=== PATIENT | female | born 1980 | race African-American/Black ===

== ENCOUNTER 2017-02-14 20:16 | Inpatient (IN) | payer OTHER ==
[~2017-02-14] VITALS: Ht 177.8 cm; Wt 108.9 kg
--- NOTE | 2017-02-14 21:26 | ED EYE COMPLAINT ---
History of Present Illness General Chief Complaint: Eye Problems Stated Complaint: PT RGT EYE HAS DISCHARGE RUNNING OUT Source: patient Exam Limitations: no limitations Vital Signs & Intake/Output Vital Signs & Intake/Output Vital Signs Date Time Temp Pulse Resp B/P Pulse O2 O2 Flow FiO2 Ox Delivery Rate 02/14 2250 96.5 70 20 111/54 97 Room Air 02/14 2051 97.7 69 18 130/81 98 Room Air ED Intake and Output 02/15 0000 02/14 1200 Intake Total Output Total Balance Patient 245 lb Weight Allergies Coded Allergies: No Known Drug Allergies (NKDA 02/14/17) Reconcile Medications Amoxicillin/Potassium Clav (Augmentin 875-125 Tablet) 875 MG-125 MG TABLET 1 TAB PO BID CELLULITIS Triage Note: PT TO ED C/O RT EYE SWELLING AND DISCHARGE, STARTED TODAY. WENT TO WALK IN WAS TOLD TO COME TO ED. PT IS UNAWARE OF ANY FOREIGN BODY. RETURNED FROM [place] ON SATURDAY Triage Nurses Notes Reviewed? yes Onset: Gradual Duration: hour(s): (6) Timing: no prior history Injury Environment: home Severity: moderate Severity Numbers: 7 Modifying Factors: Worsens With: other (palpation). Right Eye Associated Symptoms: burning, pain, orbital redness, eyelid redness, eyelid swelling : No Patient currently breastfeeds: No HPI: Patient is a 36-year-old female presenting to the emergency department with chief complaint of right eye discharge, swelling this been progressive over the past 6 hours. Patient reports that she was at work when she noticed a small my discharge coming from the eye but didn't think anything of it. When she was driving home her daughter mentioned something to her about her right eye and she took a look at him. It was way worse. Pain is burning in nature. She reports that the purulent discharge.. Denies any foreign body sensation. Denies any,. No history of similar symptoms in the past. She does not wear contacts. She has not taken anything to help with the symptoms. No recent upper respiratory congestion or viral syndrome. She did recently get back from [place] 4 days ago. No one else with similar symptoms. ([address],BETO) Past History Travel History Traveled to [place] past 21 day No Medical History Any Pertinent Medical History? see below for history Cancer(s): NONE Surgical History Surgical History: non-contributory Psychosocial History What is your primary language Romanian Tobacco Use: Never used Family History Hx Contributory? No (BETO SINGH) Review of Systems Review of Systems Constitutional: Reports: no symptoms. Comments Review of systems: See HPI, All other systems negative. Constitutional, no chills fever or weight loss HEENT: No visual changes no sore throat no congestion Cardiovascular: No chest pain ,palpitation , orthopnea or ankle swelling Skin, no jaundice no rashes Respiratory: No dyspnea cough sputum or hemoptysis GI: No nausea no vomiting Muscle skeletal: no back pain, no neck pain, Neurologic: No numbness no confusion Psych: No stress anxiety Immunology: No splenectomy or history of AIDS (BETO SINGH) Physical Exam General Appearance: well developed/nourished, no apparent distress, alert, awake , comfortable General Inspection: normal inspection Eyelid: normal inspection Conjunctiva/Sclera: normal inspection Cornea: normal inspection EOM: intact Pupil: normal accommodation, normal pupil, PERRL General Inspection: erythema and edema noted over the right upper and lower eyelid. Eyelid: edema, erythema Conjunctiva/Sclera: injected Cornea: normal inspection, examined w/fluorescein EOM: intact Pupil: normal accommodation, normal pupil, PERRL Anterior Chamber: normal inspection Physical Exam Head: atraumatic Comments: Well-developed well-nourished person in no acute distress HEENT: Pain with extraocular eye movements on the right, no entrapment visualized, Pupils equally round and reactive to light and accommodation. Moderate amount of purulent drainage coming from the medial and lateral canthi of the right eye. Tender to palpation over the upper and lower eyelid of the right eye with moderate edema. Nose is atraumatic. External auditory canal and Tympanic membranes clear. Pharynx normal. Neck: Supple, no lymphadenopathy, normal range of motion without pain or tenderness Back: Nontender Cardiovascular: normal JVP Respiratory: No respiratory distress Extremity: No edema Neuro: Alert oriented x3 Skin: No appreciable rash on exposed skin, skin is warm and dry. Psych: Mood and affect is normal, memory and judgment is normal. (BETO SINGH) Progress Differential Diagnosis: corneal abrasion, corneal foreign body, conjunctivitis, periorbital cellulitis, orbital cellulitis Plan of Care: Orders Procedure Date/time Status Regular Diet 02/15 B Active Patient Data 02/144 Active OXYGEN SETUP (GEN) 02/14 2327 Active Saline Lock 02/14 2327 Active Admit to inpatient 02/14 2327 Active Vital Signs 02/14 2327 Active Activity/Ambulation 02/14 2327 Active Code Status 02/14 2327 Active Intake & Output 02/14 2137 Active HUMAN BETA HCG SCREEN 02/14 2125 Complete COMPREHENSIVE METABOLIC PANEL 02/14 2125 Complete CBC WITHOUT DIFFERENTIAL 02/14 2125 Complete Laboratory Tests 02/14/172131: Anion Gap 8, Estimated GFR > 60, BUN/Creatinine Ratio 17.1, Glucose 95, Calcium 9.3, Total Bilirubin 0.5, AST 30, ALT 44, Alkaline Phosphatase 56, Total Protein 7.0, Albumin 3.9, Globulin 3.1, Albumin/Globulin Ratio 1.3, Total Beta HCG NEGATIVE, CBC w Diff NO MAN DIFF REQ, RBC 4.39, MCV 76.3 L, MCH 24.9 L, RDW 16.1 H, MPV 8.6, Gran % 61.1, Lymphocytes % 27.6, Monocytes % 8.3, Eosinophils % 2.5, Basophils % 0.5, Absolute Granulocytes 4.4, Absolute Lymphocytes 2.0, Absolute Monocytes 0.6, Absolute Eosinophils 0.2, Absolute Basophils 0, PUBS MCHC 32.7 L Diagnostic Imaging: Viewed by Me: CT Scan. Discussed w/RAD: CT Scan. Radiology Impression: There is no abnormal stranding behind the orbital septum. There is no abscess. Thickening consistent with orbital cellulitis. Hand-Off Endorsed To: RACHID PRADO MD Endorsed Time: 2299 Pending: CT Comments: 02/14/2017 10:35:33 PM patient informed of all lab work results. Pending CT at this time. Patient medicated with IV clindamycin assistance first-line treatment for preseptal cellulitis. I suspect the patient has periorbital cellulitis. Pending CT results patient will be treated with oral antibiotics and antibiotic eyedrops. Patient be signed out to Dr. Prado. (BETO SINGH) Radiology Impression: There is no abnormal stranding behind the orbital septum. There is no abscess. Thickening consistent with orbital cellulitis. (RACHID PRADO MD) Departure Departure Condition: Stable Referrals: DIANA SIMPSON,DELORIS MENA (PCP/Family) SRINIVAS SIMPSON,GINGER Watson Additional Instructions: Follow-up with ophthalmology call to make an appointment. Take oral antibiotics and eyedrops as prescribed. Take [id number] Motrin and Tylenol as directed for pain. Apply warm compresses. Avoid rubbing. Return for worsening symptoms or concerns. Departure Forms: Customer Survey General Discharge Information Prescriptions: Current Visit Scripts Amoxicillin/Potassium Clav (Augmentin 875-125 Tablet) 1 TAB PO BID #8 TAB (BETO SINGH) Departure Time of Disposition: 2329 Disposition: STILL A PATIENT Clinical Impression Primary Impression: Orbital cellulitis on right Admission Note Spoke With: JENIFER MILLER MD Documentation of Exam: Documentation of any treatments & extenuating circumstances including Concerns Regarding Discharge (functional status, medication knowledge or non-compliance, living conditions, etc.) that warrant an admission rather than observation: IV antibiotics serial exam ensure extraocular muscles remain intact ophthalmology evaluation continuing care discharge planning PA/DETECTIVE Co-Sign Statement Statement: ED Attending supervision documentation- x I saw and evaluated the patient. I have also reviewed all the pertinent lab results and diagnostic results. I agree with the findings and the plan of care as documented in the PA's/DETECTIVE's documentation. [] I have reviewed the ED Record and agree with the PA's/DETECTIVE's documentation. [] Additions or exceptions (if any) to the PAs/DETECTIVE's note and plan are summarized below: [] (EVE SIMPSON,RACHID)
[2017-02-14 21:46] LABS: ABSOLUTE BASOPHIL COUNT 0 /CUMM (0.0-0.2); ABSOLUTE EOSINOPHIL COUNT 0.2 /CUMM (0.0-0.7); ABSOLUTE GRANULOCYTE CT 4.4 /CUMM (1.4-6.5); ABSOLUTE MONOCYTE COUNT 0.6 /CUMM (0.10-0.60); BASOPHIL % 0.5 % (0.0-2.0); EOSINOPHIL % 2.5 % (0-5); GRANULOCYTE % 61.1 % (42.2-75.2); HEMATOCRIT 33.5 % (37-47); MEAN CORPUSCULAR HGB 24.9 PG (27.0-31.0); MEAN CORPUSCULAR HGB CONC 32.7 G/DL (33.0-37.0); MEAN CORPUSCULAR VOLUME 76.3 FL (81.0-99.0); MEAN PLATELET VOLUME 8.6 FL (7.4-10.4); PLATELET COUNT 314 /CUMM (130-400); RBC DISTRIBUTION WIDTH 16.1 % (11.5-14.5); RED BLOOD CELL CT 4.39 /CUMM (4.20-5.40); WHITE BLOOD CELL COUNT 7.1 /CUMM (4.8-10.8)
[2017-02-14] MEDS ORDERED: CLEOCIN HCL300 M1 PO (22:37)
[2017-02-14] MEDS ORDERED: POLYTRIM EYE DR10 ML OPH (22:37)
--- NOTE | 2017-02-14 23:04 | CT SCAN REPORT ---
EXAMINATION: CT ORBIT WITH CONTRAST CLINICAL INFORMATION: Orbital cellulitis. Discharge, pain. Right-sided symptoms COMPARISON: None TECHNIQUE: CT of the orbits. The patient received 95 mL of Optiray 320. Reformatting in the coronal and parasagittal planes DLP: 216 mGy-cm FINDINGS: The globes appear intact. The lenses are not displaced. There is no asymmetry or abnormal density in the optic nerve on either side. The superior ophthalmic veins appear to enhance normally. There is no mass or collection in the orbital apex on either side. The lacrimal apparatus appears within normal limits and is symmetric. There is no stranding in the retroseptal orbital fat. No mass or collection related to the extraocular muscles. No significant proptosis. There is some thickening and stranding in the superficial tissues in the region of the right eyelid. There is no opaque foreign body. No abnormality within the visualized cranial contents. No abnormality of the nasal cavity, maxillary sinuses or ethmoid air cells. The frontal sinuses appear symmetrically pneumatized and aerated. There is no disruption of the tissue planes in the infratemporal fossa. The parapharyngeal tissue planes are maintained. There is enhancement in the visualized portions of the right internal jugular vein. IMPRESSION: There is no abnormal stranding behind the orbital septum. There is no abscess. Thickening consistent with orbital cellulitis.
--- NOTE | 2017-02-15 01:15 | History & Physical ---
[facility] 02/[facility] 0046: General Information and HPI MD Statement: I have seen and personally examined XIOMARA SENIOR and documented this H&P. The patient is a 36 year old F who presented with a patient stated chief complaint of [swelling of eye]. Source of Information: patient, family Exam Limitations: no limitations History of Present Illness: This is a 36 yo female with PMH of non-malignant thyroid nodule s/p resection in Oct 2016-not on replacement therapy, who comes in with CC of r. eye swelling. Pt stated that at 2 pm today co-worker noted some exudate in eye, by 5 PM it was noticeably swollen, her visual field decreased 2/2 swelling, eye was notably erytematous, and extra-ocular movements were painful. Patient states she has baseline 20/20 vision. She denies use of corrective contact lenses, decorative lenses, glasses, or intraocular eyedrops. Denies any recent trauma to eye. Patient stated she had her eyebrows started about 10 days ago and she plucked her eyebrows 2 days ago. Of note, she was in [facility] about a week and a half ago. The trip consisted of wilderness excursions including visit to [place] and swimming [place]. During the trip patient did experience some febrile illness. Denied any other recent illnesses or sick contacts. Denies any recent eye infection, hordeolum, blehparitis, etc. Patient denies smoking, drinks socially, denies any drug use/IVDA. Allergies/Medications Allergies: Coded Allergies: No Known Drug Allergies (NKDA 02/14/17) Home Med list No Known Home Medications Compliance With Home Meds: UNKNOWN Past History Travel History Traveled to [facility] past 21 day No Medical History Endocrine: thyroid nodule s/p resection Cancer(s): NONE Surgical History Surgical History: non-contributory Past Family/Social History Psychosocial History Smoking Status: Never Smoked ETOH Use: occasional use Illicit Drug Use: denies illicit drug use Functional Ability ADLs Independent: dressing, eating, toileting, bathing. Ambulation: independent IADLs Independent: shopping, housework, finances, food prep, telephone, transportation , medication admin. Review of Systems Review of Systems Constitutional: Denies: chills, fever, malaise, weakness. EENTM: Reports: eye pain, eye drainage, eye tearing. Denies: blurred vision, double vision, visual changes, ear discharge, ear pain, ear redness, hearing changes, epistaxis, nasal pain, throat pain. Cardiovascular: Denies: chest pain, palpitations, syncope. Respiratory: Denies: cough, short of breath. GI: Reports: no symptoms. Genitourinary: Reports: no symptoms. Musculoskeletal: Reports: no symptoms. Skin: Reports: no symptoms. Exam & Diagnostic Data Last 24 Hrs of Vital Signs/I&O Vital Signs Date Time Temp Pulse Resp B/P Pulse O2 O2 Flow FiO2 Ox Delivery Rate 02/15 0057 97.2 73 18 120/88 98 02/14 2250 96.5 70 20 111/54 97 Room Air 02/14 2051 97.7 69 18 130/81 98 Room Air Intake & Output 02/15 0800 02/15 0000 02/14 1600 Intake Total Output Total Balance Patient 111.13 kg Weight Physical Exam General Appearance Alert, Oriented X3, Cooperative, Mild Distress Skin SEE BELOW HEENT Atraumatic, PERRLA, EOMI, Eyelid swollen and erythematous. Slight hypopyon appreciated . Sclera injected. EOM intact WITHOUT pain. , no discharge expressed from lacrimal duct Neck Supple Cardiovascular Regular Rate, Normal S1, Normal S2, No Murmurs Lungs Normal Air Movement Abdomen Normal Bowel Sounds, Soft, No Tenderness Neurological Normal Speech, Strength at 5/5 X4 Ext, Normal Tone, Sensation Intact, Cranial Nerves 3-12 NL Last 24 Hrs of Labs/Mauro: Laboratory Tests 02/14/172131: Anion Gap 8, Estimated GFR > 60, BUN/Creatinine Ratio 17.1, Glucose 95, Calcium 9.3, Total Bilirubin 0.5, AST 30, ALT 44, Alkaline Phosphatase 56, Total Protein 7.0, Albumin 3.9, Globulin 3.1, Albumin/Globulin Ratio 1.3, Total Beta HCG NEGATIVE, CBC w Diff NO MAN DIFF REQ, RBC 4.39, MCV 76.3 L, MCH 24.9 L, RDW 16.1 H, MPV 8.6, Gran % 61.1, Lymphocytes % 27.6, Monocytes % 8.3, Eosinophils % 2.5, Basophils % 0.5, Absolute Granulocytes 4.4, Absolute Lymphocytes 2.0, Absolute Monocytes 0.6, Absolute Eosinophils 0.2, Absolute Basophils 0, PUBS MCHC 32.7 L Assessment/Plan Assessment: This is a 36-year-old female past medical history significant for resection of non-malignant thyroid nodule, comes in for acutely swollen erythematous right eye. Plan: 1. Pre-septal cellulitis: Patient comes that acutely swollen erythematous eye. She has history significant for recent travel and swimming in [place]. However, this was over 10 days ago. More recently she has had her eyebrows threaded and plucked which could represent source of trauma. She does not have any hx of contact lens wear, trauma or eye drops. Given that patient denies ophthalmoplegia, there is no evidence of decrease in visual acuity, and no signs of proptosis this is likely pre-septal cellulitis rather than orbital cellulitis. Note that CT states "there is no abnormal stranding behind the orbital septum. There is no abscess. Thickening consistent with orbital cellulitis." The resident spoke directly with the radiologist and confirmed that there is NO orbital cellulitis and that the impression contained a typo. Note that patient is afebrile with no white count. She got 1 dose of clindamycin in the ED. * Start vancomycin and ceftaz for coverage of MRSA and Pseudomonas. If clinical suspicion is low for waterborne pathogen then consider switching to vancomycin and ceftriaxone until cultures are obtained and antibiotics can be further narrowed. * Continue to monitor clinically; if condition worsens consider ophthalmology/ID consult Full code Regular diet Chemical DVT prophylaxis As Ranked By This Provider Problem List: 1. Preseptal cellulitis of right eye Core Measures/Miscellaneous Acute Coronary Syndrome ACS Diagnosis: No Cerebrovascular Accident CVA/TIA Diagnosis: No Congestive Heart Failure CHF Diagnosis: No Venous Thromboembolism VTE Risk Factors: Acute medical illness No Mech VTE prophylaxis d/t: VTE low risk, No contraindications No VTE Pharm Prophylaxis d/t: No contraindications VTE Diagnosis: No VTE Type: NONE VTE Confirmed by (Test): NONE Severe Sepsis Severe Sepsis Present: No Septic Shock Septic Shock Present: No Miscellaneous Documentation Attending Case Discussed With: KELL [facility]ER [facility] Primary Care Physician: DIANA SIMPSON,DELORIS MENA Patient sees these Specialists unknown Level of Patient Care: General Medicine SUNDAY SIMPSON,[facility] 02/15/17 0114: Resident Review Statement Resident Statement: examined this patient, discussed with partner marketing intern, agreed with partner marketing intern, discussed with family, reviewed EMR data (avail), discussed with nursing , discussed with case mgmt, reviewed images, amended to note Other Findings: Xiomara is a 36 year old woman with no past medical hx other than a large thyroid nodule that was partially resected (negative for malignancy) - not on thyroid hormone replacement who presents with acute (several hours) onset inflammation of right eye, with purulent drainage. She has had her eye brows waxed and hx of recent (2 days ago) instrumentation with pluckers for cosmetic hair removal. Recent travel to [facility] 10 days ago wherein she was swimming in caves. No systemic symptoms or signs of infection. Clinically EOM function and vision is grossly intact, minimal local tenderness. Orbital CT notes 'Thickening consistent with orbital cellulitis.' however this is a mistake that I have clarified with a second reading by Raheem Douglas MD that this is indeed pre-orbital cellulitis. Most likely culprit is S.aureus from recent manipulation of skin/hair follicles but because of recent travel hx and contact with cave water we are concerned about unsual pathogens such as pseudomonas. Adeline Limon MD has also obtained telephonic consultation with [facility] - who agrees this is all pre-orbital. - Problems - Pre-orbital cellulitis of the R. Eye - Plan - Vancomycin and Ceftaz - given unusual exposure history if a febrile, narrow abx accordingly Consider plastic sx consult If she becomes pyrexic obtain blood cultures DVT ppx lovenox Full code ANGELA SIMPSON, [facility] 02/15/17 0300: Attending MD Review Statement Attending Statement Attending MD Statement: examined this patient, discuss w/resident/PA/SALES AND SERVICE TECHNICIAN, agreed w/resident/PA/SALES AND SERVICE TECHNICIAN, discussed with family Attending Assessment/Plan: 36 yo obese F with h/o thyroid nodule s/p resection, is here with right eye preseptal cellulitis with purulent discharge that developed over past 24 hours. Initially she felt eye movement was slightly restricted but now her EOM are intact bilaterally. She denies blurring of vision, the swelling hampers her visual field though. Patient recollects her recent visit to [facility] with water and dust exposure to eyes. She recently waxed her eyebrows and also plucked her eyebrows which could have been the inciting event. VSS. Labs: no leukocytosis, microcytic anemia. CT shows thickening and stranding in superficial tissues in region of right eyelid preseptal cellulitis, no opaque foreign body. No stranding behind orbital septum, no abscess. CT impression reads Orbital cellulitis which is a mistake. Blood cultures, patient received IV Clindamycin in ER, will cover with Ceftaz and Vanco for now. Narrow antibiotics based on response and if patient remains afebrile. Ophthal was consulted by ER, no intervention needed if patient has intact eye movements. Patient can follow up Ophthal as outpatient. Work up microcytic anemia check iron studies. DVT ppx Alps (low risk, can ambulate). Full code.
--- NOTE | 2017-02-15 02:15 | Admission Certification ---
Admission Certification Certification Statement - As attending physician, I certify that at the time of - admission, based on clinical presentation, severity of - symptoms, need for further diagnostic testing and - therapeutic interventions, and risk of adverse outcomes - without in-hospital treatment, in my clinical assessment, - this patient requires an acute hospital stay for a minimum - of two nights or longer. I have also considered psychsocial - factors such as support system, advanced age, financial - issues, cognitive issues, and failed out-patient treatments, - past re-admission history, safety of patient, and lack of - compliance as applicable. Specific rationale supporting this admission is: Preseptal cellulitis.
[2017-02-15 02:30] VITALS: BP 102/70
[2017-02-15 07:07] VITALS: BP 110/70
[2017-02-15 07:55] LABS: ABSOLUTE BASOPHIL COUNT 0 /CUMM (0.0-0.2); ABSOLUTE EOSINOPHIL COUNT 0.2 /CUMM (0.0-0.7); ABSOLUTE GRANULOCYTE CT 2.9 /CUMM (1.4-6.5); ABSOLUTE LYMPH COUNT 1.6 /CUMM (1.2-3.4); ABSOLUTE MONOCYTE COUNT 0.4 /CUMM (0.10-0.60); BASOPHIL % 0.6 % (0.0-2.0); EOSINOPHIL % 3.1 % (0-5); GRANULOCYTE % 56.2 % (42.2-75.2); HEMATOCRIT 34.2 % (37-47); MEAN CORPUSCULAR HGB 24.8 PG (27.0-31.0); MEAN CORPUSCULAR HGB CONC 32.1 G/DL (33.0-37.0); MEAN CORPUSCULAR VOLUME 77.3 FL (81.0-99.0); MEAN PLATELET VOLUME 8.8 FL (7.4-10.4); PLATELET COUNT 308 /CUMM (130-400); RBC DISTRIBUTION WIDTH 15.9 % (11.5-14.5); RED BLOOD CELL CT 4.43 /CUMM (4.20-5.40); WHITE BLOOD CELL COUNT 5.2 /CUMM (4.8-10.8)
[2017-02-15 08:39] LABS: PT 10.8 SEC (9.4-12.5)
--- NOTE | 2017-02-15 11:21 | PN- Att Addend ---
Attending Addendum Attending Brief Note Patient seen and examined. Discussed with team and infectious diseases. She is a 36-year-old female with a history of a thyroid nodule recent travel to [place] returned on Saturday the and between Saturday and had eyebrow waxed. She is here with a very clear-cut, what we believe is a preseptal cellulitis. She has no proptosis, no ophthalmoplegia and no pain with eye movements. The concern obviously is the travel to [place] and possibility of water exposure. At this point she is on Vanco to cover for the possibility of community-acquired MRSA and on ceftaz to cover for the possibility of Aeromonas. Will call in ID to narrow the antibiotics as I don't think she needs this much but obviously she is a 36-year-old with significant preseptal cellulitis. I don't believe she has sinusitis and we will closely follow-up.
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
[2017-02-15 14:28] VITALS: BP 120/62
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
[2017-02-15 22:40] VITALS: BP 120/80
[2017-02-16 06:58] VITALS: BP 102/64
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
--- NOTE | 2017-02-16 12:14 | PN- Infect Dx ---
Subjective Subjective: Afebrile. She feels improved but still notes some discomfort with moving her eye. Objective Last 24 Hrs of Vital Signs/I&O Vital Signs Date Time Temp Pulse Resp B/P Pulse O2 O2 Flow FiO2 Ox Delivery Rate 02/16 0658 97.8 52 16 102/64 97 Room Air 02/15 2240 98.8 75 20 120/80 98 Room Air 02/15 1428 97.8 70 20 120/62 98 Intake & Output 02/16 1600 02/16 0800 02/16 0000 Intake Total 550 650 Output Total Balance 550 650 Intake, IV 300 Intake, Oral 250 650 Physical Exam Other Physical Findings: She appears comfortable in no acute distress HEENT decreased right periorbital swelling; right subconjunctival hemorrhages persist; no significant erythema or tenderness on palpation Results Last 24 Hours of Lab Results: Laboratory Tests 02/16 1010 Urines Urine Color (YEL,AMB,STR) YEL Urine Clarity (CLEAR) CLEAR Urine pH (5.0 - 8.0) 7.0 Ur Specific [place] (1.001 - 1.035) 1.010 Urine Protein (NEG,<30 MG/DL) NEG Urine Ketones (NEG) NEG Urine Nitrite (NEG) NEG Urine Bilirubin (NEG) NEG Urine Urobilinogen (0.1 - 1.0 EU/dl) 0.2 Ur Leukocyte Esterase (NEG) NEG Ur Microscopic SEDIMENT EXAMINED Urine RBC (0 - 5 /HPF) RARE Ur Epithelial Cells (NONE,FEW) FEW Urine Hemoglobin (NEG) TRACE-INTACT Urine Glucose (N MG/DL) NEG Last 24 Hours of Mauro Results: No cultures Assessment/Plan Impression: Improving on Unasyn Day 2 of treatment for right preseptal cellulitis, possibly related to her recent eyebrow plucking or to a sinusitis, with temperatures and white blood cell count remaining normal. Suggestion: 1. Warm compresses to the right periorbital area 2. Continue Unasyn with a change to Augmentin 875 mg po every 12 hours if she continues to improve to complete a 7 to 10 day course of treatment
[2017-02-16 14:50] VITALS: BP 120/80
[2017-02-16 22:00] VITALS: BP 122/80
[2017-02-17 06:35] VITALS: BP 106/76
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
[2017-02-17] MEDS ORDERED: AUGMENTIN 875-1 EACH PO (09:35)
--- NOTE | 2017-02-17 09:37 | Patient Discharge Instructions ---
Discharge Instructions General Discharge Information Special Instructions: Follow up up with your primary care provider within one week for further evaluation of your preseptal-periorbital cellulitis. Take Augmentin as directed. Acute Coronary Syndrome Inclusion Criteria At DC or during hospital stay patient has or had the following: ACS DIAGNOSIS No Discharge Core Measures Meds if any: Prescribed or Continued at Discharge Meds if any: NOT Prescribed or Continued at Discharge Congestive Heart Failure Inclusion Criteria At DC or during hospital stay patient has or had the following: CHF DIAGNOSIS No Discharge Core Measures Meds if any: Prescribed or Continued at Discharge Meds if any: NOT Prescribed or Continued at Discharge Cerebrovascular accident Inclusion Criteria At DC or during hospital stay patient has or had the following: CVA/TIA Diagnosis No Discharge Core Measures Meds if any: Prescribed or Continued at Discharge Meds if any: NOT Prescribed or Continued at Discharge Venous thromboembolism Inclusion Criteria VTE Diagnosis No VTE Type NONE VTE Confirmed by (Test) NONE Discharge Core Measures - Per Current guidelines, there needs to be overlap - treatment for the first 5 days of Warfarin therapy. - If discharged on Warfarin prior to 5 days of - overlap therapy, the patient will need to be - assessed for post discharge needs including - *Post discharge parental anticoagulation - *Warfarin and/or parental anticoagulation education - *Follow up date to check INR post discharge At least 5 days overlap therapy as Inpatient No Meds if any: Prescribed or Continued at Discharge Note: Overlap Therapy is Warfarin and Anticoagulant Meds if any: NOT Prescribed or Continued at Discharge
== END 2017-02-17 14:21 | DRG 603 ==
LOC: ENRESERVTM → CANRESERV → ENRESERVDT → ERH 20:16 → 2NA 23:27 → ERHI 23:27 → ENPENDDIS 23:27 → 2NA 23:27
PROVIDERS: Internal Medicine Hematology & Oncology; Physician Assistant; Student in an Organized Health Care Education/Training Program; ADMIT Student in an Organized Health Care Education/Training Program
DX: L03.213 Periorbital cellulitis (principal)
CPT/HCPCS: 2NAP; ERO; 81001; 82436; 87804; 87804-59; 96374; 96375; J0713; J1650; J2405; J3370; J7060